=== PATIENT | female | born 1960 | race Caucasian/White ===

== ENCOUNTER → 2021-10-17 06:55 | Outpatient (CLI) | payer SELFPAY | PROVIDERS: PCP Physician Assistant; Visit Provider Physician Assistant | DX: E03.9 Hypothyroidism, unspecified (principal) | CPT/HCPCS: 84443 ==

== ENCOUNTER → 2021-11-14 16:56 | Outpatient (CLI) | payer OTHER, SELFPAY ==
[2021-11-14 15:21] LABS: Basophils # 0.2 K/mm3 (0-0.2); Basophils % 2.8 % (0.1-2.0); Eosinophils # 0.2 K/mm3 (0.0-0.4); Eosinophils % 2.7 % (0.1-12.0); Hematocrit 42.6 % (37.0-47.0); Hemoglobin 13.9 g/dL (12.2-16.2); Lymphocytes # 2.2 K/mm3 (0.7-4.5); Lymphocytes % 27.2 % (10-50); Mean Corpuscular HGB Conc 32.8 g/dL (31.8-35.4); Mean Corpuscular Hemoglobin 30.7 pg (27.0-31.2); Mean Corpuscular Volume 93.8 fl (81-99); Mean Platelet Volume 10.5 fl (7.4-10.4); Monocytes # 0.5 K/mm3 (0.1-1.0); Neutrophils # 4.8 K/mm3 (1.8-7.8); Neutrophils % 61.3 % (37.0-80.0); Platelet Count 280 K/mm3 (142-424); Red Blood Count 4.54 M/mm3 (4.20-5.40); Red Cell Distribution Width 12.9 % (11.5-17.5); White Blood Count 7.9 K/mm3 (4.8-10.8)
[2021-11-14 15:36] LABS: Alanine Aminotransferase 18 U/L (12-78); Albumin Level 3.6 g/dl (3.5-5.0); Albumin/Globulin Ratio 1.4 (1.1-1.8); Alkaline Phosphatase 100 U/L (38-126); Anion Gap 14.3 mEq/L (5-15); Aspartate Amino Transferase 21 U/L (14-36); Blood Urea Nitrogen 20 mg/dl (7-17); Calcium 8.9 mg/dl (8.4-10.2); Carbon Dioxide 25 mmol/L (22.0-30.0); Chloride 106 mmol/L (98-107); Chol/HDL Ratio 5.5 (1-3.5); Cholesterol 192 mg/dl (140-200); Estimated Glomerular Filt Rate 73 ml/min (>60); GFR (African American) 89 ML/MIN (>60); Globulin 2.6 g/dL (1.3-3.2); Glucose 97 mg/dl (74-100); HDL Cholesterol 35 mg/dl (40-60); Potassium 4.3 mmoL/L (3.5-5.1); Sodium 141 mmol/L (136-145); Total Protein,Serum 6.2 g/dl (6.3-8.2); Triglycerides 247 mg/dl (30-150); VLDL Cholesterol 49 mg/dL (0-40)
[2021-11-14 15:39] LABS: Bilirubin,Total < 0.1 mg/dl (0.2-1.3)
[2021-11-14 15:48] LABS: Direct LDL Cholesterol 123.35 mg/dL (100-129)
[2021-11-14 15:52] LABS: Free T4 (Free Thyroxine) 1.15 ng/dl (0.78-2.19)
[2021-11-14 15:56] LABS: 25-OH Vitamin D, Total < 12.8 ng/mL (30-100)
[2021-11-14 16:09] LABS: Thyroid Stimulating Hormone 0.17 uIU/mL (0.465-4.68)
== END ==
LOC: LAB 11-15 00:53 → LAB.DROPOF 11-15 11:40
PROVIDERS: PCP Physician Assistant; Visit Provider Physician Assistant
DX: E03.9 Hypothyroidism, unspecified (principal); R53.83 Other fatigue; E55.9 Vitamin D deficiency, unspecified; K59.00 Constipation, unspecified
CPT/HCPCS: 80053; 80061; 82306; 84439; 84443; 85025

== ENCOUNTER → 2021-11-29 10:55 | Outpatient (CLI) | payer OTHER, SELFPAY ==
--- NOTE | 2021-11-29 10:55 | MM_ITS ---
PROCEDURE INFORMATION: Exam: Bilateral Screening 3D Mammography Exam date and time: 11/29/2021 10:55 AM Age: 61 years old Clinical indication: Screening mammogram TECHNIQUE: Imaging protocol: Bilateral Screening tomosynthesis and 2D mammography including computer-aided detection (CAD) when performed. COMPARISON: No relevant prior studies available. FINDINGS: MAMMOGRAPHY: Breast composition: The breast is heterogeneously dense, which may obscure small masses. Mass: 0.8 cm mass within the slightly upper inner left middle 1/3 should be further assessed with spot views in CC/MLO projection. Ultrasound should also be performed. Architectural distortion: No new or suspicious architectural distortion. Calcifications: Stable benign-appearing calcifications are present. No new or suspicious cluster of microcalcifications have developed. Asymmetric density: No new or suspicious asymmetric density is present Skin thickening: None. Axillary adenopathy: None. IMPRESSION: 0.8 cm mass within the slightly upper inner left middle 1/3 should be further assessed with spot views in CC/MLO projection. Ultrasound should also be performed. ASSESSMENT: BI-RADS category 0: Incomplete-need additional imaging evaluation and/or prior mammograms for comparison.
== END ==
PROVIDERS: PCP Physician Assistant; Visit Provider Physician Assistant
DX: Z12.31 Encounter for screening mammogram for malignant neoplasm of breast (principal)
CPT/HCPCS: 77063; 77067

== ENCOUNTER → 2021-12-04 07:37 | Outpatient (CLI) | payer OTHER, SELFPAY ==
--- NOTE | 2021-12-04 07:38 | CA_ITS ---
FINAL REPORT TECHNIQUE: Grayscale, color Doppler and duplex Doppler ultrasound of the kidneys, aorta and renal arteries was performed. Multiple velocities were measured. CLINICAL HISTORY: HTN, Smoker FINDINGS: Aorta velocity: 95 cm/sec Right kidney: 11.1 cm. No evidence of hydronephrosis or mass. Right intrarenal RI: 0.73 Right renal artery velocity: 168 cm/sec. Right RAR (Renal artery-Aortic Ratio): 1.77 Left Kidney: 11.1 cm. No evidence of hydronephrosis or mass. Left intrarenal RI: 0.72 Left renal artery velocity: 159 cm/sec. Left RAR (Renal Artery-Aortic Ratio): 1.67 IMPRESSION: No evidence of significant renal artery stenosis. CT angiogram or postcontrast MR angiogram would be more sensitive for evaluation of possible renal artery stenosis. Reviewed, Interpreted and Dictated by Krishna Daniels III, MD Transcribed by Robby Aj Authenticated and [facility]
== END ==
PROVIDERS: PCP Physician Assistant; Visit Provider Physician Assistant
DX: I10 Essential (primary) hypertension (principal)
CPT/HCPCS: 93976

== ENCOUNTER → 2021-12-16 13:23 | Outpatient (CLI) | payer OTHER, SELFPAY ==
--- NOTE | 2021-12-16 13:23 | US_ITS ---
PROCEDURE INFORMATION: Exam: US Left Breast, Complete MG Left Diagnostic Breast Tomosynthesis Exam date and time: 12/16/2021 1:53 PM Age: 61 years old Clinical indication: Recall on the basis of screening mammogram 11/29/2021 for further evaluation of 0.8 cm mass in the slightly upper inner left breast middle 3rd. TECHNIQUE: Imaging protocol: Complete ultrasound of all four quadrants of the Left breast and the retroareolar regions, including ultrasound of the axilla when performed. Left Diagnostic tomosynthesis and 2D mammography including computer-aided detection (CAD) when performed. Unilateral or bilateral exam. COMPARISON: MG MM DIG MAMM DX UNILAT LT CAD 12/16/2021 1:31 PM FINDINGS: MAMMOGRAPHY: 2D spot compression in the upper inner quadrant shows no persistent mass, asymmetry, or architectural distortion. ULTRASOUND: Left sonography, all 4 quadrants, retroareolar and axilla demonstrates complicated cysts, at 12 o'clock 3 cm from the nipple measuring 0.6 x 0.7 x 0.3 cm, in the upper outer quadrant, 2-4 cm from the nipple measuring 0.6 x 0.3 x 0.6 cm, in the lower outer quadrant, measuring 0.9 x 0.2 cm - which may be ductal ectasia, in the upper inner quadrant 3 cm from the nipple measuring 0.5 x 0.3 x 0.5 cm, and at 10 o'clock 5 cm from the nipple measuring 0.6 by 0.6 x 0.3 cm. Findings at 10, 12, or in the upper inner quadrant may correspond to the originally noted mammographic mass. Sonographically unremarkable left axillary lymph node. IMPRESSION: Probable benign cystic changes and no persistent mammographic finding, suggest six-month follow-up left diagnostic mammogram and targeted left sonography to follow the complicated cysts, unless otherwise clinically indicated. ASSESSMENT: BI-RADS Category 3: Probably benign
== END ==
PROVIDERS: PCP Physician Assistant; Visit Provider Student in an Organized Health Care Education/Training Program
DX: R92.8 Other abnormal and inconclusive findings on diagnostic imaging of breast (principal); N63.20 Unspecified lump in the left breast, unspecified quadrant
CPT/HCPCS: 76641; 77061; 77065; G0279

== ENCOUNTER 2022-01-15 09:36 | Emergency (ER) | payer OTHER, SELFPAY ==
[2022-01-15 10:50] VITALS: BP 143/92; PULSE 70; RESP 18; TEMP 36.6; O2SAT 99; BMI 28.8
--- NOTE | 2022-01-15 11:07 | EXP.UTC ---
Discharge Plan Disposition Patient Disposition: Home, Self-Care Condition: Good Prescriptions Prescriptions: New prednisone [prednisone] 20 mg tablet 20 mg PO BID 5 Days Qty: 10 0RF amoxicillin-pot clavulanate 875-125 mg Tablet 1 tab PO Q12H Qty: 20 0RF benzonatate 100 mg capsule 100 mg PO TID PRN (Reason: cough) Qty: 30 0RF No Action losartan 50 mg tablet 50 mg PO DAILY Qty: 30 2RF thyroid (pork) [[place] Thyroid] 90 mg tablet 90 mg PO DAILY Qty: 90 1RF thyroid (pork) [[place] Thyroid] 15 mg tablet 15 mg PO DAILY Qty: 90 1RF Referrals Follow up/Referrals: Jassi Sarmiento MD [Primary Care Provider] - See instructions Activity Restrictions/Add. Instructions Additional Instructions/Restrictions: Start antibiotic today. Be sure to complete entire prescription even if feeling better Monitor temp. Tylenol every 4 hours as needed and / or ibuprofen every 6 hours as needed ( As long as your primary care physician has told you that it ok to take both. For fever/aches/pains ER if no less than 101 despite Tylenol or Motrin Humidifier/vaporizer or hot steamy shower *Tessalon Perles will not cause drowsiness but use at bedtime to help stop cough so that you may get some rest. *Start steroid today. Helps with inflammation therefore, cough and wheezing. Follow directions on the package. Reviewed side effects. Patient reports taking them before. Follow up IMMEDIATELY for new or worsening of symptoms OR no noticeable improvement over the next 48-72 hours. 911 immediately for any life threatening symptoms such as chest pain or difficulty breathing Clinical Impressions Clinical Impression: Sinusitis, Bronchitis Stand Alone Forms Stand Alone Forms: Work/School Release Instructions Patient Instructions: DI for Sinusitis, Sinusitis Discharge ED Provider: Nadia Simon [facility] [place] HPI General Stated complaint: congestion, cough, sinus pressure Mode of Arrival: Ambulatory Source of Information: Patient Limitations: No Limitations Time Seen by Provider: 01/15/22 11:07 Description of Symptoms (Recalled from Triage Doc. by RN): PATIENT C/O SINUS CONGESTION, COUGH, AND CHEST CONGESTION X 1 WEEK HEENT Symptoms (Recalled from RN notes): Yes Resp Symptoms (Recalled from RN notes): Yes Skin Symptoms (Recalled from RN notes): No MS Symptoms (Recalled from RN notes): No Functional Status (Recalled from RN notes): WNL History of Present Illness Provider Complaint: Patient states that she has been having cough, sinus congestion and pressure and felt like it was moving into her chest States that she was worried she would end up with Bronchitis or Pneumonia so she came in to get something to help clear it up Related Data Previous Rx's Medication Instructions Recorded losartan 50 mg tablet 50 mg PO DAILY #30 tabs 11/14/21 thyroid (pork) 15 mg tablet 15 mg PO DAILY #90 tabs 11/18/21 ([place] Thyroid) thyroid (pork) 90 mg tablet 90 mg PO DAILY #90 tabs 11/18/21 ([place] Thyroid) amoxicillin 875 mg-potassium 1 tab PO Q12H #20 tabs 01/15/22 clavulanate 125 mg tablet benzonatate 100 mg capsule 100 mg PO TID PRN cough #30 caps 01/15/22 prednisone 20 mg tablet 20 mg PO BID 5 days #10 tabs 01/15/22 Allergies Allergy/AdvReac Type Severity Reaction Status Date / Time barium iodide AdvReac Verified 12/19/21 09:43 barium sulfate AdvReac Verified 12/19/21 09:43 Worker's Comp Is this a Worker's Comp case?: No PFSH PFSH Medical History (Updated 01/15/22 @ 11:17 by Nadia Simon APRN) Anxiety Fatigue Hypertension Hypertension Hypothyroidism Surgical History (Updated 01/15/22 @ 11:04 by Daisy Pearson RN) History of cholecystectomy History of tubal ligation Social History (Updated 01/15/22 @ 11:04 by Daisy Pearson RN) Smoking Status: Current every day smoker tobacco type: cigarettes alcohol intake: never current occupational st
[2022-01-15 11:20] VITALS: BP 143/92; PULSE 70; RESP 18; TEMP 36.6; O2SAT 99
== END 2022-01-15 11:24 | disposition home or self-care (01) ==
PROVIDERS: Emergency Provider Nurse Practitioner; PCP Internal Medicine Adolescent Medicine
DX: J02.9 Acute pharyngitis, unspecified (principal); R09.81 Nasal congestion; R05.9 Cough, unspecified; R53.82 Chronic fatigue, unspecified; I10 Essential (primary) hypertension; E03.9 Hypothyroidism, unspecified; F41.9 Anxiety disorder, unspecified; F17.210 Nicotine dependence, cigarettes, uncomplicated; Z79.52 Long term (current) use of systemic steroids; Z79.899 Other long term (current) drug therapy; Z88.8 Allergy status to other drugs, medicaments and biological substances
CPT/HCPCS: 99212; G0463

== ENCOUNTER → 2022-03-17 10:30 | Outpatient (CLI) | payer OTHER, SELFPAY ==
[2022-03-17 16:18] LABS: Basophils # 0.1 K/mm3 (0-0.2); Eosinophils # 0.1 K/mm3 (0.0-0.4); Eosinophils % 1.6 % (0.1-12.0); Hematocrit 45.3 % (37.0-47.0); Hemoglobin 15.2 g/dL (12.2-16.2); Lymphocytes # 2.4 K/mm3 (0.7-4.5); Lymphocytes % 27.7 % (10-50); Mean Corpuscular HGB Conc 33.5 g/dL (31.8-35.4); Mean Corpuscular Hemoglobin 30.3 pg (27.0-31.2); Mean Corpuscular Volume 90.6 fl (81-99); Mean Platelet Volume 10.3 fl (7.4-10.4); Monocytes # 0.4 K/mm3 (0.1-1.0); Monocytes % 4.9 % (1.7-9.3); Neutrophils # 5.5 K/mm3 (1.8-7.8); Neutrophils % 64.6 % (37.0-80.0); Platelet Count 316 K/mm3 (142-424); Red Cell Distribution Width 13.4 % (11.5-17.5); White Blood Count 8.5 K/mm3 (4.8-10.8)
[2022-03-17 16:20] LABS: Alanine Aminotransferase 15 U/L (12-78); Albumin Level 4.5 g/dl (3.5-5.0); Albumin/Globulin Ratio 1.6 (1.1-1.8); Alkaline Phosphatase 80 U/L (38-126); Anion Gap 10.8 mEq/L (5-15); Aspartate Amino Transferase 22 U/L (14-36); Bilirubin,Total 0.5 mg/dl (0.2-1.3); Blood Urea Nitrogen 15 mg/dl (7-17); Calcium 9.8 mg/dl (8.4-10.2); Carbon Dioxide 26 mmol/L (22.0-30.0); Chloride 109 mmol/L (98-107); Chol/HDL Ratio 4.8 (1-3.5); Cholesterol 226 mg/dl (140-200); Estimated Glomerular Filt Rate 64 ml/min (>60); GFR (African American) 77 ML/MIN (>60); Globulin 2.8 g/dL (1.3-3.2); Glucose 106 mg/dl (74-100); HDL Cholesterol 47 mg/dl (40-60); Potassium 4.8 mmoL/L (3.5-5.1); Sodium 141 mmol/L (136-145); Total Protein,Serum 7.3 g/dl (6.3-8.2); Triglycerides 153 mg/dl (30-150); VLDL Cholesterol 31 mg/dL (0-40)
[2022-03-17 16:31] LABS: Direct LDL Cholesterol 139.55 mg/dL (100-129)
[2022-03-17 16:37] LABS: 25-OH Vitamin D, Total 17.7 ng/mL (30-100)
[2022-03-17 16:52] LABS: Thyroid Stimulating Hormone 2.47 uIU/mL (0.465-4.68)
== END ==
PROVIDERS: PCP Physician Assistant; Visit Provider Physician Assistant
DX: I10 Essential (primary) hypertension (principal); E55.9 Vitamin D deficiency, unspecified
CPT/HCPCS: 80053; 80061; 82306; 84443; 85025

== ENCOUNTER 2023-06-12 10:56 | Outpatient (CLI) | payer OTHER, SELFPAY ==
--- NOTE | 2023-06-12 11:02 | MM_ITS ---
PROCEDURE INFORMATION: Exam: MG Bilateral Screening 3D Mammography Exam date and time: 06/12/2023 10:54 AM Age: 63 years old Clinical indication: Screening examination TECHNIQUE: Imaging protocol: Bilateral Screening tomosynthesis and 2D mammography including computer-aided detection (CAD) when performed. COMPARISON: 1. MG MM DIG MAMM DX UNILAT LT CAD 12/16/2021 1:31 PM 2. MG MM DIG SCREENING MAMM BI W/CAD 11/29/2021 10:55 AM FINDINGS: MAMMOGRAPHY: Breast composition: The breasts are heterogeneously dense, which may obscure small masses. Mass: None. Architectural distortion: None. Calcifications: No suspicious calcifications. Asymmetric density: None. Skin thickening: None. Axillary adenopathy: None. IMPRESSION: No mammographic evidence of malignancy. Annual screening is recommended unless otherwise clinically indicated. ASSESSMENT: BI-RADS Category 1: Negative
== END 2023-06-12 23:59 ==
LOC: RAD 10:57
PROVIDERS: PCP Nurse Practitioner; Visit Provider Nurse Practitioner
DX: Z12.31 Encounter for screening mammogram for malignant neoplasm of breast (principal)
CPT/HCPCS: 77063; 77067

== ENCOUNTER 2023-09-30 14:00 | Outpatient (CLI) | payer OTHER, SELFPAY ==
[2023-09-30 18:42] LABS: Basophils # 0.1 K/mm3 (0-0.2); Basophils % 0.7 % (0.1-2.0); Eosinophils # 0.2 K/mm3 (0.0-0.4); Eosinophils % 3.6 % (0.1-12.0); Hematocrit 41.3 % (37.0-47.0); Hemoglobin 13.7 g/dL (12.2-16.2); Lymphocytes # 2.4 K/mm3 (0.7-4.5); Lymphocytes % 37.6 % (10-50); Mean Corpuscular HGB Conc 33.1 g/dL (31.8-35.4); Mean Corpuscular Hemoglobin 30.6 pg (27.0-31.2); Mean Corpuscular Volume 92.6 fl (81-99); Mean Platelet Volume 9.4 fl (7.4-10.4); Monocytes # 0.5 K/mm3 (0.1-1.0); Monocytes % 7.4 % (1.7-9.3); Neutrophils # 3.2 K/mm3 (1.8-7.8); Neutrophils % 50.6 % (37.0-80.0); Platelet Count 250 K/mm3 (142-424); Red Blood Count 4.46 M/mm3 (4.20-5.40); Red Cell Distribution Width 14.2 % (11.5-17.5); White Blood Count 6.3 K/mm3 (4.8-10.8)
[2023-09-30 19:01] LABS: Alanine Aminotransferase 27 U/L (12-78); Albumin/Globulin Ratio 1.4 (1.1-1.8); Alkaline Phosphatase 83 U/L (38-126); Anion Gap 11.9 mEq/L (5-15); Aspartate Amino Transferase 26 U/L (14-36); Bilirubin,Total 0.5 mg/dl (0.2-1.3); Blood Urea Nitrogen 13 mg/dl (7-17); Calcium 9.3 mg/dl (8.4-10.2); Carbon Dioxide 22 mmol/L (22.0-30.0); Chloride 112 mmol/L (98-107); Chol/HDL Ratio 5.2 (1-3.5); Cholesterol 255 mg/dl (140-200); Estimated Glomerular Filt Rate 85 ml/min (>60); GFR (African American) 103 ML/MIN (>60); Globulin 2.8 g/dL (1.3-3.2); Glucose 85 mg/dl (74-100); HDL Cholesterol 49 mg/dl (40-60); Potassium 3.9 mmoL/L (3.5-5.1); Sodium 142 mmol/L (136-145); Total Protein,Serum 6.8 g/dl (6.3-8.2); Triglycerides 206 mg/dl (30-150); VLDL Cholesterol 41 mg/dL (0-40)
[2023-09-30 19:11] LABS: Direct LDL Cholesterol 153.97 mg/dL (100-129)
[2023-09-30 19:20] LABS: 25-OH Vitamin D, Total 39.2 ng/mL (30-100)
[2023-09-30 19:21] LABS: Free Thyroxine Index 2.2 ug/dL (5.93-13.13); T4 (Thyroxine) 7.2 ug/dl (5.53-11.0); Triiodothryronine (T3) Uptake 31 % (23.5-40.5)
[2023-09-30 19:34] LABS: Thyroid Stimulating Hormone 2.24 uIU/mL (0.465-4.68)
[2023-09-30 21:21] LABS: Hemoglobin A1C 5.1 % (4.0-6.0)
== END 2023-09-30 23:59 | disposition home or self-care (01) ==
LOC: LAB.DROPOF 10-01 14:10
PROVIDERS: Visit Provider Family Medicine
DX: I10 Essential (primary) hypertension (principal); E03.9 Hypothyroidism, unspecified; Z72.0 Tobacco use
CPT/HCPCS: 80050; 80053; 80061; 82306; 83036; 84436; 84443; 84479; 85025

== ENCOUNTER 2023-12-28 14:13 | Outpatient (CLI) | payer OTHER, SELFPAY ==
[2023-12-28 18:39] LABS: Albumin Level 4.1 g/dl (3.5-5.0); Chloride 106 mmol/L (98-107); Sodium 140 mmol/L (136-145)
[2023-12-28 18:40] LABS: Potassium 4.7 mmoL/L (3.5-5.1)
[2023-12-28 18:42] LABS: Alanine Aminotransferase 23 U/L (12-78); Albumin/Globulin Ratio 1.5 (1.1-1.8); Alkaline Phosphatase 79 U/L (38-126); Anion Gap 12.7 mEq/L (5-15); Aspartate Amino Transferase 24 U/L (14-36); Bilirubin,Total 0.6 mg/dl (0.2-1.3); Blood Urea Nitrogen 12 mg/dl (7-17); Carbon Dioxide 26 mmol/L (22.0-30.0); Estimated Glomerular Filt Rate 64 ml/min (>60); GFR (African American) 77 ML/MIN (>60); Globulin 2.7 g/dL (1.3-3.2); Total Protein,Serum 6.8 g/dl (6.3-8.2)
[2023-12-28 18:43] LABS: Calcium 9.4 mg/dl (8.4-10.2); Chol/HDL Ratio 3.8 (1-3.5); Cholesterol 170 mg/dl (140-200); Glucose 91 mg/dl (74-100); HDL Cholesterol 45 mg/dl (40-60); Triglycerides 173 mg/dl (30-150); VLDL Cholesterol 35 mg/dL (0-40)
[2023-12-28 18:54] LABS: Direct LDL Cholesterol 89.83 mg/dL (100-129)
== END 2023-12-28 23:59 | disposition home or self-care (01) ==
LOC: LAB.DROPOF 12-29 12:47
PROVIDERS: PCP Family Medicine; Visit Provider Family Medicine
DX: E03.9 Hypothyroidism, unspecified (principal)
CPT/HCPCS: 80053; 80061